=== PATIENT | female | born 1945 | race Caucasian/White ===

== ENCOUNTER 2016-05-02 18:40 | Observation (INO) | payer OTHER, MEDICARE ==
[~2016-05-02] VITALS: Ht 165.1 cm; Wt 54.5 kg
[~2016-05-02 18:40] MED LIST: AMITRIPTYLINE H10 MG PO; ANTIVERT25 MG PO; ASPIR-LOW81 MG PO; ASPIRIN81 M2 PO; ATIVAN0.5 MG PO; Antivert PO; BACTRIM,SEPT1 TABLET PO; BUSPAR5 MG PO; BUSPIRONE HCL5 MG PO; CEFTIN500 MG PO; CIPRO500 MG PO; CLOPIDOGREL75 MG PO; COLACE10 MG/ML PO; COLACE100 MG PO; Cipro PO; DETROL LA4 MG PO; DIAZEPAM2 MG PO; DIFLUCAN100 MG PO; DITROPAN XL5 MG PO; DITROPAN5 MG PO; DOCUSATE SODIU100 MG PO; DOMP10T PO; DULCOLAX10 MG PR; Detrol LA PO; ERY-TAB250 MG PO; ERYTHROMYCIN250 M1 PO; ERYTHROMYCIN250 MG PO; FERROUS SULFAT325 MG PO; FLINTSTONES1 TABLET PO; FLUCONAZOLE100 MG PO; FLUOXETINE HCL10 M1 PO; FLUOXETINE HCL10 MG PO; HYDROCHLOROTH12.5 M3 PO; KEFLEX500 MG PO; LAMICTAL100 MG PO; LAMOTRIGINE100 MG PO; LEVETIRACETAM500 MG PO; LIDODERM 5% P1 PATCH TD; LaMICtal PO; Lovenox SC; MECLIZINE HCL12.5 M1 PO; MECLIZINE HCL25 M3 PO; MECLIZINE HCL25 MG PO; METOCLOPRAMIDE10 MG PO; MILK OF MAGN PO; MIRALAX17 GM PO; MIRTAZAPINE15 MG PO; MIRTAZAPINE30 MG PO; MIRTAZAPINE7.5 MG PO; OMEPRAZOLE20 M2 PO; OMEPRAZOLE40 M1 PO; ONDANSETRON HCL4 MG PO; ONDANSETRON ODT4 MG PO; OXYBUTYNIN CHLOR5 M1 PO; OXYCODONE H5 MG/5 ML PO; PHENADOZ25 MG PR; PHENERGAN25 MG PR; PLAVIX75 MG PO; POLYETHYLENE GL17 GM PO; POTASSIUM CHLO10 ME3 PO; PRAVACHOL20 MG PO; PRAVASTATIN SOD20 MG PO; PRILOSEC40 MG PO; PROMETHAZINE HC25 M1 PO; PROMETHAZINE12.5 M1 PO; PROPRANOLOL HCL60 MG PO; PROTONIX40 MG PO; PROZAC10 MG PO; Phenergan PO; Pravachol PO; REGLAN10 MG PO; SENNA8.6 MG PO; SEROQUEL12.5 MG PO; SINEMET PO; TRANSDERM-SCO1 PATCH TD; TRAZODONE HCL50 MG PO; TYLENOL REGULA325 MG PO; Toprol XL PO; VALIUM2 MG PO; VICODIN,LORT1 TABLET PO; VITAMIN D5000 INTUN PO; Vicodin,Lortab 5/500 PO; Vicodin,Norco 5/325 PO; Vitamin D PO; ZOFRAN ODT4 MG PO; ZOFRAN4 MG PO; ZUPLENZ4 MG PO; [UNRECOGNIZED DRUG - OTHER]; [UNRECOGNIZED DRUG - OTHER] PR
[2016-05-02 19:57] LABS: HEMATOCRIT 43.2 % (36.0-46.0); MCH 28.3 PG (29.0-34.0); MCHC 32.4 G/DL (30.0-36.0); MCV 87.4 FL (83-99); MEAN PLAT.VOLUME 8.9 uM^3 (9.5-12.4); PLATELET COUNT 236 K/uL (156-360); RBC DIS.WIDTH-CV 14.1 % (11.8-14.6); RBC DIS.WIDTH-SD 44.9 % (39-53); RED BLOOD COUNT 4.94 M/uL (3.80-5.20); WHITE BLOOD COUNT 5.4 K/uL (4.1-10.2)
[2016-05-02 20:02] LABS: CHLORIDE 105 mEq/L (99-109); POTASSIUM 4.2 mEq/L (3.7-5.4); SODIUM 139 mEq/L (136-147)
[2016-05-02 20:04] LABS: GLUCOSE 97 mg/dL (70-99)
[2016-05-02 20:05] LABS: ANION GAP 10 MEQ/L (2-14)
[2016-05-02 20:08] LABS: GFR ESTIMATE (CALCULATED) > 59 mL/min/
[2016-05-02 20:09] LABS: UREA NITROGEN (BUN) 14 mg/dL (9-23)
[2016-05-02 21:46] LABS: TROP-I INTERPRETATION NEGATIVE; TROPONIN-I < 0.01 ng/mL (0.0-0.30)
[2016-05-02] MEDS ORDERED: LAMICTAL100 MG PO (21:52)
[2016-05-02] MEDS ORDERED: PRAVACHOL20 MG PO (21:53)
[2016-05-02] MEDS ORDERED: LOW DOSE ASPIRI81 M1 PO (21:53)
[2016-05-02] MEDS ORDERED: TAPAZOLE5 MG PO (21:53)
[2016-05-02] MEDS ORDERED: PROTONIX40 MG PO (21:53)
[2016-05-02 22:22] LABS: Estimated Average Glucose 88 mg/dL (70-123); HEMOGLOBIN A1c (GLYCOHEMOGLOB) 4.7 % HGB (Below 5.7)
[2016-05-02 23:16] VITALS: BP 146/66
[2016-05-03 02:20] LABS: HDL CHOLESTEROL 76 MG/DL (Desirable>=50); LDL CHOLESTEROL 74 mg/dL (Desirable<100); NON-HDL CHOLESTEROL 83 mg/dL (Desirable<160); TOTAL CHOLESTEROL 159 mg/dL (Desirable<200); TRIGLYCERIDES 45 MG/DL (Normal: <150)
[2016-05-03 05:52] VITALS: BP 107/53
[2016-05-03 07:50] VITALS: BP 98/53
[2016-05-03 12:32] VITALS: BP 105/56
[2016-05-03 15:33] VITALS: BP 94/51
[2016-05-03] MEDS ORDERED: LO-DOSE ASPIRIN81 M1 PO (16:47)
== END 2016-05-03 19:40 | disposition home or self-care (01) ==
LOC: EME 18:40 → EDOF 21:32 → 5WEST 22:33
DX: G45.9 Transient cerebral ischemic attack, unspecified (principal); I69.398 Other sequelae of cerebral infarction; R42 Dizziness and giddiness; I10 Essential (primary) hypertension; E03.9 Hypothyroidism, unspecified; G40.909 Epilepsy, unspecified, not intractable, without status epilepticus; Z79.82 Long term (current) use of aspirin; Z82.49 Family history of ischemic heart disease and other diseases of the circulatory system; Z88.5 Allergy status to narcotic agent; Z88.8 Allergy status to other drugs, medicaments and biological substances
CPT/HCPCS: 70450; 70551; 71020; 80048; 80061; 83036; 84484; 85027; 93005; 99281; 99285; G0378; J2060; J2405

== ENCOUNTER 2016-07-28 12:47 | Inpatient (IN) | payer OTHER, MEDICARE ==
[~2016-07-28] VITALS: Ht 162.6 cm; Wt 55.0 kg
[~2016-07-28 12:47] MED LIST changes: +LO-DOSE ASPIRIN81 M1 PO; +LOW DOSE ASPIRI81 M1 PO; +TAPAZOLE5 MG PO
[2016-07-28 13:50] LABS: HEMATOCRIT 40.9 % (36.0-46.0); MCH 23.5 PG (29.0-34.0); MCHC 29.6 G/DL (30.0-36.0); MCV 79.6 FL (83-99); MEAN PLAT.VOLUME 8.7 uM^3 (9.5-12.4); PLATELET COUNT 296 K/uL (156-360); RBC DIS.WIDTH-CV 15.5 % (11.8-14.6); RBC DIS.WIDTH-SD 44.6 % (39-53); RED BLOOD COUNT 5.14 M/uL (3.80-5.20); WHITE BLOOD COUNT 4.9 K/uL (4.1-10.2)
[2016-07-28 13:59] LABS: CHLORIDE 104 mEq/L (99-109); POTASSIUM 3.9 mEq/L (3.7-5.4); SODIUM 140 mEq/L (136-147)
[2016-07-28 14:00] LABS: GLUCOSE 92 mg/dL (70-99)
[2016-07-28 14:02] LABS: ANION GAP 9 MEQ/L (2-14)
[2016-07-28 14:04] LABS: GFR ESTIMATE (CALCULATED) > 59 mL/min/
[2016-07-28 14:05] LABS: UREA NITROGEN (BUN) 10 mg/dL (9-23)
[2016-07-28 14:11] LABS: TROP-I INTERPRETATION NEGATIVE; TROPONIN-I < 0.01 ng/mL (0.0-0.30)
[2016-07-28] MEDS ORDERED: MYRBETRIQ25 MG PO (14:48)
[2016-07-28] MEDS ORDERED: ASPIR-LOW81 MG PO (14:48)
[2016-07-28] MEDS ORDERED: ZOFRAN4 MG PO (14:48)
[2016-07-28] MEDS ORDERED: MECLIZINE HCL12.5 M1 PO (14:48)
[2016-07-28] MEDS ORDERED: ERGOCALCIF50000 UNIT PO (14:49)
[2016-07-28 22:07] LABS: SAMPLE HEMOLYSIS CHECK 0; SAMPLE ICTERIC CHECK 0; SAMPLE LIPEMIA CHECK 0
[2016-07-28 22:12] LABS: HDL CHOLESTEROL 71 MG/DL (Desirable>=50); LDL CHOLESTEROL 84 mg/dL (Desirable<100); NON-HDL CHOLESTEROL 94 mg/dL (Desirable<160); TOTAL CHOLESTEROL 165 mg/dL (Desirable<200); TRIGLYCERIDES 49 MG/DL (Normal: <150)
[2016-07-28 22:19] LABS: Estimated Average Glucose 100 mg/dL (70-123); HEMOGLOBIN A1c (GLYCOHEMOGLOB) 5.1 % HGB (Below 5.7)
[2016-07-28 22:34] VITALS: BP 132/56
[2016-07-29 01:40] LABS: TROP-I INTERPRETATION NEGATIVE; TROPONIN-I < 0.01 ng/mL (0.0-0.30)
[2016-07-29 07:10] LABS: HEMATOCRIT 39.3 % (36.0-46.0); MCH 23.6 PG (29.0-34.0); MCHC 29.5 G/DL (30.0-36.0); MEAN PLAT.VOLUME 8.3 uM^3 (9.5-12.4); PLATELET COUNT 259 K/uL (156-360); RBC DIS.WIDTH-CV 15.5 % (11.8-14.6); RBC DIS.WIDTH-SD 44.7 % (39-53); RED BLOOD COUNT 4.91 M/uL (3.80-5.20)
[2016-07-29 07:11] VITALS: BP 114/54
[2016-07-29 07:47] LABS: TROP-I INTERPRETATION NEGATIVE; TROPONIN-I < 0.01 ng/mL (0.0-0.30)
[2016-07-29 08:45] LABS: D-DIMER ELISA 0.18 mg/L FEU (< 0.57)
[2016-07-29 09:06] LABS: INTER. NORMALIZED RATIO 1.1; PROTHROMBIN TIME 10.9 (9.2-11.2); PTT 29.9 (25-32)
[2016-07-29 12:52] VITALS: BP 98/52
[2016-07-29 17:55] VITALS: BP 89/52
[2016-07-29 20:01] VITALS: BP 108/59
[2016-07-29 23:49] VITALS: BP 131/58
[2016-07-30 04:16] VITALS: BP 93/46
[2016-07-30 08:08] VITALS: BP 113/52
[2016-07-30 12:03] VITALS: BP 95/563
== END 2016-07-30 14:36 | disposition home health service (06) | DRG 149 ==
LOC: EME 12:47 → EDOF 21:27 → 5WEST 21:27
PROVIDERS: Emergency Medicine; Hospitalist
DX: H81.20 Vestibular neuronitis, unspecified ear (principal); E86.0 Dehydration; I10 Essential (primary) hypertension; E78.5 Hyperlipidemia, unspecified; K31.84 Gastroparesis; G40.909 Epilepsy, unspecified, not intractable, without status epilepticus; F32.9 Major depressive disorder, single episode, unspecified; K21.9 Gastro-esophageal reflux disease without esophagitis; Z96.651 Presence of right artificial knee joint; Z86.73 Personal history of transient ischemic attack (TIA), and cerebral infarction without residual deficits; D64.9 Anemia, unspecified; G43.909 Migraine, unspecified, not intractable, without status migrainosus
CPT/HCPCS: 70450; 70551; 71020; 80048; 80061; 81003; 83036; 84484; 85027; 85379; 85610; 85730; 93005; 93880; 99281; 99285; G0378; J1644; J2060; J2405; J7030

== ENCOUNTER 2016-08-25 10:46 | Emergency (ER) | payer OTHER, MEDICARE ==
[~2016-08-25] VITALS: Ht 162.6 cm; Wt 55.4 kg
[~2016-08-25 10:46] MED LIST changes: +ERGOCALCIF50000 UNIT PO; +MYRBETRIQ25 MG PO
[2016-08-25 11:52] LABS: HEMATOCRIT 38.5 % (36.0-46.0); MCH 22.1 PG (29.0-34.0); MCHC 28.8 G/DL (30.0-36.0); MCV 76.7 FL (83-99); MEAN PLAT.VOLUME 8.9 uM^3 (9.5-12.4); PLATELET COUNT 287 K/uL (156-360); RBC DIS.WIDTH-CV 16.6 % (11.8-14.6); RBC DIS.WIDTH-SD 45.9 % (39-53); RED BLOOD COUNT 5.02 M/uL (3.80-5.20); WHITE BLOOD COUNT 4.4 K/uL (4.1-10.2)
[2016-08-25 12:10] LABS: CHLORIDE 107 mEq/L (99-109); POTASSIUM 4.9 mEq/L (3.7-5.4); SODIUM 141 mEq/L (136-147)
[2016-08-25 12:12] LABS: GLUCOSE 94 mg/dL (70-99)
[2016-08-25 12:13] LABS: ANION GAP 7 MEQ/L (2-14)
[2016-08-25 12:16] LABS: GFR ESTIMATE (CALCULATED) > 59 mL/min/; UREA NITROGEN (BUN) 8 mg/dL (9-23)
[2016-08-25 12:43] LABS: ADD MIUA? YES; BILIRUBIN NEGATIVE; BLOOD NEGATIVE; COLOR YELLOW ((YELLOW)); GLUCOSE (STRIP) NEGATIVE; KETONES NEGATIVE; LEUKOCYTES SMALL; NITRITE NEGATIVE; PROTEIN (STRIP) NEGATIVE; SPECIFIC GRAVITY 1.014 (1.000-1.030)
[2016-08-25 12:58] LABS: AMORPHOUS PHOSPHATE CRYSTALS 2+; BACTERIA 1+ /HPF; CASTS NONE SEEN /LPF; CRYSTALS PRESENT; EPITHELIAL CELLS 1+ /HPF; MUCUS NONE SEEN /LPF; RED BLOOD CELLS NONE SEEN /HPF (0-5); UCUL ADDED? NO; WHITE BLOOD CELLS 0-5 /HPF (0-5)
[2016-08-25 15:01] VITALS: BP 107/55
== END 2016-08-25 15:09 | disposition home or self-care (01) ==
LOC: EME 10:46
PROVIDERS: Emergency Medicine
DX: R53.1 Weakness (principal); R42 Dizziness and giddiness; J45.909 Unspecified asthma, uncomplicated; K21.9 Gastro-esophageal reflux disease without esophagitis; R56.9 Unspecified convulsions; I25.10 Atherosclerotic heart disease of native coronary artery without angina pectoris; Z86.73 Personal history of transient ischemic attack (TIA), and cerebral infarction without residual deficits
CPT/HCPCS: 80048; 81003; 85027; 99281; 99285; J7030

== ENCOUNTER 2016-08-29 18:04 | Emergency (ER) | payer OTHER, MEDICARE ==
[~2016-08-29] VITALS: Ht 162.6 cm; Wt 55.5 kg
[2016-08-29 18:51] LABS: HEMATOCRIT 33.3 % (36.0-46.0); MCH 21.9 PG (29.0-34.0); MCHC 28.8 G/DL (30.0-36.0); MEAN PLAT.VOLUME 8.7 uM^3 (9.5-12.4); PLATELET COUNT 272 K/uL (156-360); RBC DIS.WIDTH-CV 16.8 % (11.8-14.6); RBC DIS.WIDTH-SD 46.4 % (39-53); RED BLOOD COUNT 4.38 M/uL (3.80-5.20); WHITE BLOOD COUNT 4.8 K/uL (4.1-10.2)
[2016-08-29 18:59] LABS: CHLORIDE 107 mEq/L (99-109); POTASSIUM 4.3 mEq/L (3.7-5.4); SODIUM 138 mEq/L (136-147)
[2016-08-29 19:01] LABS: GLUCOSE 94 mg/dL (70-99)
[2016-08-29 19:02] LABS: ANION GAP 6 MEQ/L (2-14)
[2016-08-29 19:05] LABS: GFR ESTIMATE (CALCULATED) > 59 mL/min/
[2016-08-29 19:06] LABS: UREA NITROGEN (BUN) 12 mg/dL (9-23)
[2016-08-29 19:11] LABS: TROP-I INTERPRETATION NEGATIVE; TROPONIN-I < 0.01 ng/mL (0.0-0.30)
[2016-08-29] MEDS ORDERED: MAALOX MAXIMUM355 ML PO (21:32)
[2016-08-29 21:38] LABS: TROP-I INTERPRETATION NEGATIVE; TROPONIN-I < 0.01 ng/mL (0.0-0.30)
[2016-08-29 23:10] VITALS: BP 108/56
== END 2016-08-29 23:19 | disposition home or self-care (01) ==
LOC: EME 18:04
PROVIDERS: Emergency Medicine
DX: R07.9 Chest pain, unspecified (principal); M54.2 Cervicalgia; R09.89 Other specified symptoms and signs involving the circulatory and respiratory systems; Z79.82 Long term (current) use of aspirin
CPT/HCPCS: 71020; 80048; 84484; 85027; 93005; 99281; 99285

== ENCOUNTER 2016-11-11 17:29 | Emergency (ER) | payer OTHER, MEDICARE ==
[~2016-11-11] VITALS: Ht 162.6 cm; Wt 56.8 kg
[~2016-11-11 17:29] MED LIST changes: +MAALOX MAXIMUM355 ML PO
[2016-11-11 19:04] LABS: EOSINOPHIL COUNT 0.1 K/uL (0-0.3); HEMATOCRIT 31.9 % (36.0-46.0); IMMATURE GRANULOCYTE (%) 0.2 % (0.0-0.7); INSTRUMENT ABS NEUTROPHIL CT 3.8 K/uL; LYMPHOCYTE COUNT 0.9 K/uL (1.0-2.8); MCH 18.2 PG (29.0-34.0); MCHC 27.3 G/DL (30.0-36.0); MCV 66.6 FL (83-99); MEAN PLAT.VOLUME 9.2 uM^3 (9.5-12.4); MONOCYTE (%) 9.4 % (3-12); MONOCYTE COUNT 0.5 K/uL (0-0.8); NEUTROPHIL (%) 72.4 % (45-76); NEUTROPHIL COUNT 3.8 K/uL (1.8-6.4); PLATELET COUNT 312 K/uL (156-360); RBC DIS.WIDTH-CV 19.2 % (11.8-14.6); RBC DIS.WIDTH-SD 44.8 % (39-53); RED BLOOD COUNT 4.79 M/uL (3.80-5.20); WHITE BLOOD COUNT 5.2 K/uL (4.1-10.2)
[2016-11-11 19:10] LABS: ADD MIUA? YES; BILIRUBIN NEGATIVE; BLOOD NEGATIVE; COLOR YELLOW ((YELLOW)); GLUCOSE (STRIP) NEGATIVE; KETONES NEGATIVE; LEUKOCYTES TRACE; NITRITE NEGATIVE; PROTEIN (STRIP) 30; SPECIFIC GRAVITY 1.028 (1.000-1.030)
[2016-11-11 19:11] LABS: CHLORIDE 106 mEq/L (99-109); POTASSIUM 4.1 mEq/L (3.7-5.4); SODIUM 141 mEq/L (136-147)
[2016-11-11 19:13] LABS: GLUCOSE 97 mg/dL (70-99)
[2016-11-11 19:15] LABS: ANION GAP 12 MEQ/L (2-14)
[2016-11-11 19:17] LABS: GFR ESTIMATE (CALCULATED) > 59 mL/min/
[2016-11-11 19:18] LABS: UREA NITROGEN (BUN) 13 mg/dL (9-23)
[2016-11-11 19:47] LABS: EPITHELIAL CELLS 1+ /HPF; RED BLOOD CELLS 0-5 /HPF (0-5); WHITE BLOOD CELLS 0-5 /HPF (0-5)
[2016-11-11 19:48] LABS: AMORPHOUS URATES CRYSTALS 1+; BACTERIA 1+ /HPF; CASTS NONE SEEN /LPF; CRYSTALS PRESENT; MUCUS 2+ /LPF; UCUL ADDED? NO
[2016-11-11 20:53] VITALS: BP 106/59
== END 2016-11-11 20:54 | disposition home or self-care (01) ==
LOC: EME 17:29
PROVIDERS: Emergency Medicine
DX: D50.9 Iron deficiency anemia, unspecified (principal); R53.1 Weakness; G40.909 Epilepsy, unspecified, not intractable, without status epilepticus; K21.9 Gastro-esophageal reflux disease without esophagitis; Z86.73 Personal history of transient ischemic attack (TIA), and cerebral infarction without residual deficits; F32.9 Major depressive disorder, single episode, unspecified; J45.909 Unspecified asthma, uncomplicated; Z88.6 Allergy status to analgesic agent; Z90.49 Acquired absence of other specified parts of digestive tract
CPT/HCPCS: 80048; 81003; 85025; 93005; 99281; 99284

== ENCOUNTER 2016-12-05 00:03 | Emergency (ER) | payer OTHER, MEDICARE ==
[~2016-12-05] VITALS: Ht 162.6 cm; Wt 54.5 kg
[2016-12-05 01:25] LABS: CHLORIDE 104 mEq/L (99-109); POTASSIUM 4.1 mEq/L (3.7-5.4); SODIUM 140 mEq/L (136-147)
[2016-12-05 01:27] LABS: GLUCOSE 108 mg/dL (70-99); TROP-I INTERPRETATION NEGATIVE; TROPONIN-I < 0.01 ng/mL (0.0-0.30)
[2016-12-05 01:28] LABS: ANION GAP 11 MEQ/L (2-14)
[2016-12-05 01:29] LABS: TOTAL BILIRUBIN 0.5 mg/dL (0.0-1.0)
[2016-12-05 01:31] LABS: ALKALINE PHOSPHATASE 68 IU/L (3-129); GFR ESTIMATE (CALCULATED) > 59 mL/min/
[2016-12-05 01:32] LABS: UREA NITROGEN (BUN) 12 mg/dL (9-23)
[2016-12-05 01:34] LABS: LIPASE 6 U/L (1.0-51.0)
[2016-12-05 01:36] LABS: HEMATOCRIT 32.2 % (36.0-46.0); MCH 17.2 PG (29.0-34.0); MCHC 26.4 G/DL (30.0-36.0); MCV 65.2 FL (83-99); MEAN PLAT.VOLUME 9.4 uM^3 (9.5-12.4); PLATELET COUNT 325 K/uL (156-360); RBC DIS.WIDTH-CV 20.8 % (11.8-14.6); RBC DIS.WIDTH-SD 45.7 % (39-53); RED BLOOD COUNT 4.94 M/uL (3.80-5.20); WHITE BLOOD COUNT 5.5 K/uL (4.1-10.2)
[2016-12-05 03:37] LABS: ADD MIUA? YES; BILIRUBIN NEGATIVE; BLOOD NEGATIVE; COLOR YELLOW ((YELLOW)); GLUCOSE (STRIP) NEGATIVE; KETONES 5; LEUKOCYTES TRACE; NITRITE NEGATIVE; PROTEIN (STRIP) NEGATIVE; SPECIFIC GRAVITY 1.024 (1.000-1.030)
[2016-12-05 04:05] LABS: BACTERIA RARE /HPF; EPITHELIAL CELLS 1+ /HPF; MUCUS 2+ /LPF; RED BLOOD CELLS 0-5 /HPF (0-5); UCUL ADDED? NO; WHITE BLOOD CELLS 0-5 /HPF (0-5)
[2016-12-05 04:39] VITALS: BP 117/74
== END 2016-12-05 04:40 | disposition home or self-care (01) ==
LOC: EME 00:03
PROVIDERS: Emergency Medicine
DX: R42 Dizziness and giddiness (principal); D64.9 Anemia, unspecified; R26.2 Difficulty in walking, not elsewhere classified; Z79.82 Long term (current) use of aspirin
CPT/HCPCS: 71010; 80053; 81003; 83690; 84484; 85027; 93005; 99281; 99285; J7030

== ENCOUNTER 2017-01-02 14:34 | Emergency (ER) | payer OTHER, MEDICARE ==
[~2017-01-02] VITALS: Ht 162.6 cm; Wt 55.0 kg
[2017-01-02 15:48] LABS: EOSINOPHIL (%) 2.4 % (0-5); EOSINOPHIL COUNT 0.1 K/uL (0-0.3); HEMATOCRIT 30.7 % (36.0-46.0); IMMATURE GRANULOCYTE (%) 0.2 % (0.0-0.7); INSTRUMENT ABS NEUTROPHIL CT 2.3 K/uL; LYMPHOCYTE COUNT 1.2 K/uL (1.0-2.8); MCH 16.6 PG (29.0-34.0); MCHC 26.1 G/DL (30.0-36.0); MCV 63.8 FL (83-99); MEAN PLAT.VOLUME 9.1 uM^3 (9.5-12.4); MONOCYTE (%) 12.1 % (3-12); MONOCYTE COUNT 0.5 K/uL (0-0.8); NEUTROPHIL COUNT 2.3 K/uL (1.8-6.4); PLATELET COUNT 312 K/uL (156-360); PROTHROMBIN TIME 11.4 SEC (10.2-12.9); RBC DIS.WIDTH-CV 20.5 % (11.8-14.6); RBC DIS.WIDTH-SD 45.4 % (39-53); RED BLOOD COUNT 4.81 M/uL (3.80-5.20); WHITE BLOOD COUNT 4.1 K/uL (4.1-10.2)
[2017-01-02 15:51] LABS: PTT 31.1 SEC (25-37)
[2017-01-02 15:55] LABS: CHLORIDE 105 mEq/L (99-109); MAGNESIUM 2.1 mg/dL (1.3-2.7); POTASSIUM 4.2 mEq/L (3.7-5.4); SODIUM 139 mEq/L (136-147)
[2017-01-02 15:56] LABS: GLUCOSE 104 mg/dL (70-99)
[2017-01-02 15:58] LABS: ANION GAP 10 MEQ/L (2-14)
[2017-01-02 16:00] LABS: GFR ESTIMATE (CALCULATED) > 59 mL/min/
[2017-01-02 16:01] LABS: TROP-I INTERPRETATION NEGATIVE; TROPONIN-I < 0.01 ng/mL (0.0-0.30); UREA NITROGEN (BUN) 9 mg/dL (9-23)
[2017-01-02 17:16] LABS: ADD MIUA? YES; BILIRUBIN NEGATIVE; BLOOD SMALL; COLOR STRAW ((YELLOW)); GLUCOSE (STRIP) NEGATIVE; KETONES NEGATIVE; LEUKOCYTES NEGATIVE; NITRITE NEGATIVE; PROTEIN (STRIP) NEGATIVE; SPECIFIC GRAVITY 1.004 (1.000-1.030); UROBILINOGEN 0.2 MG/DL (0.2-1.0)
[2017-01-02 17:19] LABS: BACTERIA RARE /HPF; EPITHELIAL CELLS RARE /HPF; HYALINE CASTS 0-5 /LPF; MUCUS NONE SEEN /LPF; RED BLOOD CELLS 0-5 /HPF (0-5); UCUL ADDED? NO; WHITE BLOOD CELLS 0-5 /HPF (0-5)
[2017-01-02 17:54] VITALS: BP 100/60
== END 2017-01-02 17:55 | disposition home or self-care (01) ==
LOC: EME 14:34
PROVIDERS: Emergency Medicine
DX: R42 Dizziness and giddiness (principal); D64.9 Anemia, unspecified; K21.9 Gastro-esophageal reflux disease without esophagitis; R56.9 Unspecified convulsions; I25.10 Atherosclerotic heart disease of native coronary artery without angina pectoris; Z86.73 Personal history of transient ischemic attack (TIA), and cerebral infarction without residual deficits; Z88.5 Allergy status to narcotic agent
CPT/HCPCS: 70450; 71010; 80048; 81003; 83735; 84484; 85025; 85610; 85730; 87040; 93005; 99281; 99285

== ENCOUNTER 2017-05-22 17:15 | Inpatient (IN) | payer OTHER, MEDICARE ==
[~2017-05-22] VITALS: Ht 157.5 cm; Wt 51.8 kg
[2017-05-22 18:53] LABS: ALBUMIN 3.3 g/dL (3.2-4.8); CHLORIDE 105 mEq/L (99-109)
[2017-05-22 18:54] LABS: SODIUM 139 mEq/L (136-147)
[2017-05-22 18:56] LABS: GLUCOSE 94 mg/dL (70-99); TOTAL PROTEIN 5.3 g/dL (6.4-8.3)
[2017-05-22 18:58] LABS: TOTAL BILIRUBIN 0.4 mg/dL (0.0-1.0)
[2017-05-22 18:59] LABS: ALKALINE PHOSPHATASE 44 IU/L (3-129); CREATININE 0.5 mg/dL (0.6-1.3); GFR ESTIMATE (CALCULATED) > 59 mL/min/
[2017-05-22 19:01] LABS: AST (GOT) 9 IU/L (2-34); UREA NITROGEN (BUN) 10 mg/dL (9-23)
[2017-05-22 19:02] LABS: ALT (GPT) 7 IU/L (3-49)
[2017-05-22 19:06] LABS: HEMATOCRIT 26.3 % (36.0-46.0); MCH 15.2 PG (29.0-34.0); MCHC 25.1 G/DL (30.0-36.0); MCV 60.6 FL (83-99); PLATELET COUNT 311 K/uL (156-360); RBC DIS.WIDTH-CV 22.1 % (11.8-14.6); RBC DIS.WIDTH-SD 45.7 % (39-53); RED BLOOD COUNT 4.34 M/uL (3.80-5.20); WHITE BLOOD COUNT 4.1 K/uL (4.1-10.2)
[2017-05-22 19:13] LABS: HEMOGLOBIN 6.6 G/DL (11.9-15.5)
[2017-05-22 19:18] LABS: TROP-I INTERPRETATION NEGATIVE; TROPONIN-I 0.02 ng/mL (0.0-0.30)
[2017-05-22 19:46] LABS: APPEARANCE CLOUDY ((CLEAR)); BILIRUBIN NEGATIVE; BLOOD SMALL; COLOR YELLOW ((YELLOW)); GLUCOSE (STRIP) NEGATIVE; KETONES 20; LEUKOCYTES LARGE; NITRITE NEGATIVE; PROTEIN (STRIP) NEGATIVE; SPECIFIC GRAVITY 1.016 (1.000-1.030)
[2017-05-22 20:08] LABS: BACTERIA NONE SEEN /HPF; EPITHELIAL CELLS 1+ /HPF; MUCUS NONE SEEN /LPF; RED BLOOD CELLS 0-5 /HPF (0-5); UCUL ADDED? NO; WHITE BLOOD CELLS 0-5 /HPF (0-5)
[2017-05-22] MEDS ORDERED: DITROPAN XL5 MG PO (20:10)
[2017-05-22] MEDS ORDERED: THYROID MED PO (20:10)
[2017-05-22] MEDS ORDERED: ZOFRAN4 MG PO (20:11)
[2017-05-22 23:33] VITALS: BP 130/64
[2017-05-23] VITALS (10 sets, daily range): BP systolic 113–142; BP diastolic 58–68
[2017-05-23 09:57] LABS: HEMATOCRIT 32.3 % (36.0-46.0); HEMOGLOBIN 8.8 G/DL (11.9-15.5); MCH 17.7 PG (29.0-34.0); MCHC 27.2 G/DL (30.0-36.0); MCV 65.1 FL (83-99); NRBC (%) 0.5 /100 WBC (0-0); PLATELET COUNT 279 K/uL (156-360); RBC DIS.WIDTH-CV 26.3 % (11.8-14.6); RBC DIS.WIDTH-SD 58.4 % (39-53); RED BLOOD COUNT 4.96 M/uL (3.80-5.20); WHITE BLOOD COUNT 5.8 K/uL (4.1-10.2)
[2017-05-23 10:25] LABS: CHLORIDE 104 MEQ/L (99-109); CREATININE 0.4 MG/DL (0.6-1.3); GFR ESTIMATE (CALCULATED) > 59 mL/min/; GLUCOSE 77 mg/dL (70-99); POTASSIUM 3.7 MEQ/L (3.7-5.4); SODIUM 136 MEQ/L (136-147); UREA NITROGEN (BUN) 5 mg/dL (9-23)
[2017-05-23 12:45] LABS: THYROTROPIN (TSH) 3.5 MIU/L (0.4-5.5)
[2017-05-24 06:56] LABS: BASOPHIL (%) 0.8 % (0-1); EOSINOPHIL (%) 0 % (0-5); HEMOGLOBIN 8.9 G/DL (11.9-15.5); IMMATURE GRANULOCYTE (%) 0.5 % (0.0-0.7); LYMPHOCYTE COUNT 0.8 K/uL (1.0-2.8); MCH 17.7 PG (29.0-34.0); MCV 65.5 FL (83-99); MONOCYTE (%) 9.5 % (3-12); MONOCYTE COUNT 0.4 K/uL (0-0.8); NEUTROPHIL (%) 69.2 % (45-76); NEUTROPHIL COUNT 2.7 K/uL (1.8-6.4); PLATELET COUNT 274 K/uL (156-360); RBC DIS.WIDTH-CV 26.6 % (11.8-14.6); RBC DIS.WIDTH-SD 59.7 % (39-53); RED BLOOD COUNT 5.04 M/uL (3.80-5.20); WHITE BLOOD COUNT 3.9 K/uL (4.1-10.2)
[2017-05-24 07:15] VITALS: BP 134/62
[2017-05-24 07:17] LABS: ALBUMIN 3.3 G/DL (3.2-4.8); CHLORIDE 105 MEQ/L (99-109); CREATININE 0.4 MG/DL (0.6-1.3); GFR ESTIMATE (CALCULATED) > 59 mL/min/; GLUCOSE 69 mg/dL (70-99); PHOSPHORUS 3.1 mg/dL (2.5-4.9); POTASSIUM 3.5 MEQ/L (3.7-5.4); SODIUM 141 MEQ/L (136-147); UREA NITROGEN (BUN) 4 mg/dL (9-23)
[2017-05-24 15:40] VITALS: BP 119/59
[2017-05-25 01:49] VITALS: BP 105/54
[2017-05-25 07:12] LABS: HEMATOCRIT 32.3 % (36.0-46.0); HEMOGLOBIN 8.9 G/DL (11.9-15.5); MCH 18.2 PG (29.0-34.0); MCHC 27.6 G/DL (30.0-36.0); MCV 65.9 FL (83-99); PLATELET COUNT 278 K/uL (156-360); RBC DIS.WIDTH-CV 27.4 % (11.8-14.6); RBC DIS.WIDTH-SD 61.5 % (39-53); WHITE BLOOD COUNT 4.2 K/uL (4.1-10.2)
[2017-05-25 08:02] VITALS: BP 115/56
[2017-05-25 11:10] VITALS: BP 109/58
[2017-05-25] MEDS ORDERED: ERYTHROMYCIN250 M1 PO (12:02)
[2017-05-25] MEDS ORDERED: PROTONIX40 MG PO (12:02)
[2017-05-25 12:24] LABS: STOOL OCCULT BLD 1ST SPECIMEN POSITIVE
[2017-05-26] MEDS ORDERED: PROTONIX40 MG PO (23:16)
[2017-05-26] MEDS ORDERED: TAPAZOLE5 MG PO (23:16)
== END 2017-05-25 14:59 | disposition home health service (06) | DRG 378 ==
LOC: EME 17:15 → EDOF 21:01 → ENRESERV 21:06 → 5EAST 23:14 → ENPENDDIS 05-25 → 5EAST 05-25 14:59
PROVIDERS: Hospitalist; Internal Medicine Gastroenterology
PROC: 30233N1 Transfusion of Nonautologous Red Blood Cells into Peripheral Vein, Percutaneous Approach (ICD-10-PCS; principal; 2017-05-22)
DX: K92.2 Gastrointestinal hemorrhage, unspecified (principal); D62 Acute posthemorrhagic anemia; N39.0 Urinary tract infection, site not specified; K31.84 Gastroparesis; E78.5 Hyperlipidemia, unspecified; F32.9 Major depressive disorder, single episode, unspecified; F60.0 Paranoid personality disorder; G40.909 Epilepsy, unspecified, not intractable, without status epilepticus; I10 Essential (primary) hypertension; I25.10 Atherosclerotic heart disease of native coronary artery without angina pectoris; K21.0 Gastro-esophageal reflux disease with esophagitis; F41.9 Anxiety disorder, unspecified; G43.909 Migraine, unspecified, not intractable, without status migrainosus; R00.0 Tachycardia, unspecified; G31.84 Mild cognitive impairment of uncertain or unknown etiology; Z96.651 Presence of right artificial knee joint; Z79.82 Long term (current) use of aspirin; Z86.010 Personal history of colon polyps; Z86.73 Personal history of transient ischemic attack (TIA), and cerebral infarction without residual deficits
CPT/HCPCS: 80048; 80053; 80069; 81003; 82272; 84443; 84484; 85025; 85027; 86850; 86900; 86901; 86920; 93005; 99281; 99285; C9113; J0696; J2405; J7030; J7040; P9016; S0028

== ENCOUNTER 2017-05-26 18:05 | Observation (INO) | payer OTHER, MEDICARE ==
[~2017-05-26] VITALS: Ht 160 cm; Wt 50.7 kg
[~2017-05-26 18:05] MED LIST changes: +THYROID MED PO
[2017-05-26 18:55] LABS: HEMATOCRIT 40.8 % (36.0-46.0); MCH 18.1 PG (29.0-34.0); MCV 67.1 FL (83-99); PLATELET COUNT 291 K/uL (156-360); RBC DIS.WIDTH-CV 29.4 % (11.8-14.6); RBC DIS.WIDTH-SD 67.7 % (39-53); WHITE BLOOD COUNT 5.3 K/uL (4.1-10.2)
[2017-05-26 18:56] LABS: RED BLOOD COUNT 6.08 M/uL (3.80-5.20)
[2017-05-26 19:09] LABS: ALBUMIN 3.9 g/dL (3.2-4.8); CHLORIDE 102 mEq/L (99-109); POTASSIUM 3.6 mEq/L (3.7-5.4); SODIUM 142 mEq/L (136-147)
[2017-05-26 19:13] LABS: GLUCOSE 93 mg/dL (70-99); TOTAL PROTEIN 6.6 g/dL (6.4-8.3)
[2017-05-26 19:15] LABS: ALKALINE PHOSPHATASE 50 IU/L (3-129); CREATININE 0.6 mg/dL (0.6-1.3); GFR ESTIMATE (CALCULATED) > 59 mL/min/; TOTAL BILIRUBIN 0.6 mg/dL (0.0-1.0)
[2017-05-26 19:16] LABS: UREA NITROGEN (BUN) 11 mg/dL (9-23)
[2017-05-26 19:17] LABS: AST (GOT) 9 IU/L (2-34)
[2017-05-26 19:18] LABS: ALT (GPT) 7 IU/L (3-49)
[2017-05-26 20:15] LABS: MAGNESIUM 1.8 mg/dL (1.3-2.7)
[2017-05-26 20:22] LABS: LIPASE 10 U/L (1.0-51.0); TROP-I INTERPRETATION NEGATIVE; TROPONIN-I < 0.01 ng/mL (0.0-0.30)
[2017-05-26 22:12] LABS: APPEARANCE SL.HAZY ((CLEAR)); BILIRUBIN NEGATIVE; BLOOD SMALL; COLOR YELLOW ((YELLOW)); GLUCOSE (STRIP) NEGATIVE; KETONES 80; LEUKOCYTES NEGATIVE; NITRITE NEGATIVE; PROTEIN (STRIP) 100; SPECIFIC GRAVITY 1.024 (1.000-1.030); UROBILINOGEN 0.2 MG/DL (0.2-1.0)
[2017-05-26 22:18] LABS: BACTERIA 1+ /HPF; EPITHELIAL CELLS 4+ /HPF; MUCUS TRACE /LPF; UCUL ADDED? NO; WHITE BLOOD CELLS 0-5 /HPF (0-5)
[2017-05-26] MEDS ORDERED: PROTONIX40 MG PO (23:16)
[2017-05-26] MEDS ORDERED: TAPAZOLE5 MG PO (23:16)
[2017-05-27 00:55] VITALS: BP 134/60
[2017-05-27 05:35] LABS: TROP-I INTERPRETATION NEGATIVE; TROPONIN-I < 0.01 ng/mL (0.0-0.30)
[2017-05-27 08:25] VITALS: BP 135/6
[2017-05-27 11:14] VITALS: BP 127/60
[2017-05-27 15:57] VITALS: BP 112/57
[2017-05-27 19:45] VITALS: BP 139/65
[2017-05-28 00:12] VITALS: BP 122/57
[2017-05-28 06:02] LABS: HEMATOCRIT 31.9 % (36.0-46.0); MCH 18.3 PG (29.0-34.0); MCHC 27.3 G/DL (30.0-36.0); PLATELET COUNT 226 K/uL (156-360); RBC DIS.WIDTH-CV 28.9 % (11.8-14.6); RBC DIS.WIDTH-SD 67.7 % (39-53); WHITE BLOOD COUNT 3.1 K/uL (4.1-10.2)
[2017-05-28 06:03] LABS: HEMOGLOBIN 8.7 G/DL (11.9-15.5); RED BLOOD COUNT 4.76 M/uL (3.80-5.20)
[2017-05-28 06:22] LABS: CHLORIDE 104 MEQ/L (99-109); CREATININE 0.3 MG/DL (0.6-1.3); GFR ESTIMATE (CALCULATED) > 59 mL/min/; GLUCOSE 75 mg/dL (70-99); POTASSIUM 3.2 MEQ/L (3.7-5.4); SODIUM 141 MEQ/L (136-147); UREA NITROGEN (BUN) 2 mg/dL (9-23)
[2017-05-28 08:21] VITALS: BP 113/75
[2017-05-28] MEDS ORDERED: ERYTHROMYCIN250 M1 PO (12:00)
[2017-05-28] MEDS ORDERED: PRAVASTATIN SOD40 MG PO (12:00)
[2017-05-28] MEDS ORDERED: ANTIVERT25 MG PO (12:00)
[2017-05-28 12:41] VITALS: BP 115/68
[2017-05-28 15:14] VITALS: BP 116/68
== END 2017-05-28 17:19 ==
LOC: EME 18:05 → 5WEST 23:52 → EDOF 23:52 → ENRESERV 23:53 → 5WEST 05-27 00:43 → ENPENDDIS 05-28 → 5WEST 05-28 17:19
PROVIDERS: Hospitalist
DX: R42 Dizziness and giddiness (principal); E86.0 Dehydration; R11.2 Nausea with vomiting, unspecified; E05.90 Thyrotoxicosis, unspecified without thyrotoxic crisis or storm; D62 Acute posthemorrhagic anemia; F60.0 Paranoid personality disorder; G31.84 Mild cognitive impairment of uncertain or unknown etiology; F43.22 Adjustment disorder with anxiety; K21.9 Gastro-esophageal reflux disease without esophagitis; K22.70 Barrett's esophagus without dysplasia; Z85.038 Personal history of other malignant neoplasm of large intestine; R53.1 Weakness; G40.909 Epilepsy, unspecified, not intractable, without status epilepticus; Z86.73 Personal history of transient ischemic attack (TIA), and cerebral infarction without residual deficits; Z90.49 Acquired absence of other specified parts of digestive tract; Z88.5 Allergy status to narcotic agent; Z79.82 Long term (current) use of aspirin; Z82.49 Family history of ischemic heart disease and other diseases of the circulatory system
CPT/HCPCS: 71046; 80048; 80053; 81003; 83690; 83735; 84484; 85027; 93005; 99281; 99285; G0378; G8978 GP CM; G8979 GP CK; G8980 GP CK; G8980 GP CM; J1644; J2060; J2405; J7030; J7042

== ENCOUNTER 2017-06-10 12:48 | Emergency (ER) | payer OTHER, MEDICARE ==
[~2017-06-10] VITALS: Ht 160 cm; Wt 47.8 kg
[~2017-06-10 12:48] MED LIST changes: +PRAVASTATIN SOD40 MG PO
[2017-06-10 14:43] LABS: HEMOGLOBIN 9.8 G/DL (11.9-15.5); MCH 19.6 PG (29.0-34.0); MCV 69.9 FL (83-99); PLATELET COUNT 390 K/uL (156-360); RBC DIS.WIDTH-CV 31.1 % (11.8-14.6); RBC DIS.WIDTH-SD 73.8 % (39-53); RED BLOOD COUNT 5.01 M/uL (3.80-5.20); WHITE BLOOD COUNT 10.8 K/uL (4.1-10.2)
[2017-06-10 14:48] LABS: CHLORIDE 105 mEq/L (99-109); POTASSIUM 4.3 mEq/L (3.7-5.4); SODIUM 139 mEq/L (136-147)
[2017-06-10 14:50] LABS: GLUCOSE 71 mg/dL (70-99)
[2017-06-10 14:54] LABS: CREATININE 0.5 mg/dL (0.6-1.3); GFR ESTIMATE (CALCULATED) > 59 mL/min/
[2017-06-10 14:55] LABS: UREA NITROGEN (BUN) 11 mg/dL (9-23)
[2017-06-10 18:52] VITALS: BP 122/65
== END 2017-06-10 18:55 ==
LOC: EME 12:48
PROVIDERS: Emergency Medicine
DX: M25.512 Pain in left shoulder (principal); M79.602 Pain in left arm; W19.XXXA Unspecified fall, initial encounter; I25.10 Atherosclerotic heart disease of native coronary artery without angina pectoris; Z86.73 Personal history of transient ischemic attack (TIA), and cerebral infarction without residual deficits; R56.9 Unspecified convulsions; K21.9 Gastro-esophageal reflux disease without esophagitis; F41.9 Anxiety disorder, unspecified; F32.9 Major depressive disorder, single episode, unspecified; Z79.82 Long term (current) use of aspirin; Z88.5 Allergy status to narcotic agent
CPT/HCPCS: 71045; 73030; 73060; 80048; 85027; 99281; 99284

== ENCOUNTER 2017-08-05 14:30 | Emergency (ER) | payer OTHER, MEDICARE ==
[~2017-08-05] VITALS: Ht 157.5 cm; Wt 59.0 kg
[2017-08-05 15:06] LABS: MCHC 31.3 G/DL (30.0-36.0); PLATELET COUNT 263 K/uL (156-360); RBC DIS.WIDTH-CV 22.3 % (11.8-14.6); RBC DIS.WIDTH-SD 73.1 % (39-53); RED BLOOD COUNT 4.47 M/uL (3.80-5.20); WHITE BLOOD COUNT 6.5 K/uL (4.1-10.2)
[2017-08-05 15:09] LABS: HEMOGLOBIN 12.5 G/DL (11.9-15.5); MCV 89.5 FL (83-99)
[2017-08-05 15:14] LABS: CHLORIDE 106 mEq/L (99-109); POTASSIUM 4.1 mEq/L (3.7-5.4); SODIUM 142 mEq/L (136-147)
[2017-08-05 15:16] LABS: GLUCOSE 79 mg/dL (70-99)
[2017-08-05 15:20] LABS: CREATININE 0.6 mg/dL (0.6-1.3); GFR ESTIMATE (CALCULATED) > 59 mL/min/
[2017-08-05 15:21] LABS: UREA NITROGEN (BUN) 13 mg/dL (9-23)
[2017-08-05 18:18] LABS: APPEARANCE SL.HAZY ((CLEAR)); BILIRUBIN NEGATIVE; BLOOD NEGATIVE; COLOR YELLOW ((YELLOW)); GLUCOSE (STRIP) NEGATIVE; KETONES NEGATIVE; LEUKOCYTES TRACE; NITRITE NEGATIVE; PROTEIN (STRIP) NEGATIVE; SPECIFIC GRAVITY 1.023 (1.000-1.030); UROBILINOGEN 0.2 MG/DL (0.2-1.0)
[2017-08-05 18:26] LABS: BACTERIA NONE SEEN /HPF; EPITHELIAL CELLS RARE /HPF; HYALINE CASTS 0-5 /LPF; MUCUS 2+ /LPF; RED BLOOD CELLS 0-5 /HPF (0-5); WHITE BLOOD CELLS 0-5 /HPF (0-5)
[2017-08-05 21:00] VITALS: BP 144/79
== END 2017-08-05 21:01 | disposition home or self-care (01) ==
LOC: EME 14:30 → RME 14:30
PROVIDERS: Nurse Practitioner Family
DX: R53.1 Weakness (principal); R29.6 Repeated falls; Z91.81 History of falling; F41.9 Anxiety disorder, unspecified; Z86.73 Personal history of transient ischemic attack (TIA), and cerebral infarction without residual deficits; Z90.49 Acquired absence of other specified parts of digestive tract; Z79.82 Long term (current) use of aspirin
CPT/HCPCS: 71046; 80048; 81003; 85027; 93005; 99281; 99284

== ENCOUNTER 2017-09-03 14:43 | Emergency (ER) | payer OTHER, MEDICARE ==
[~2017-09-03] VITALS: Ht 162.6 cm; Wt 62.5 kg
[2017-09-03 15:15] LABS: HEMATOCRIT 41.1 % (36.0-46.0); HEMOGLOBIN 12.9 G/DL (11.9-15.5); MCH 28.1 PG (29.0-34.0); MCHC 31.4 G/DL (30.0-36.0); MCV 89.5 FL (83-99); PLATELET COUNT 233 K/uL (156-360); RBC DIS.WIDTH-CV 16.2 % (11.8-14.6); RBC DIS.WIDTH-SD 52.3 % (39-53); RED BLOOD COUNT 4.59 M/uL (3.80-5.20); WHITE BLOOD COUNT 6.7 K/uL (4.1-10.2)
[2017-09-03 15:19] LABS: ALBUMIN 3.7 g/dL (3.2-4.8); CHLORIDE 107 mEq/L (99-109); POTASSIUM 3.8 mEq/L (3.7-5.4)
[2017-09-03 15:20] LABS: SODIUM 142 mEq/L (136-147)
[2017-09-03 15:22] LABS: GLUCOSE 108 mg/dL (70-99); TOTAL PROTEIN 6.4 g/dL (6.4-8.3)
[2017-09-03 15:24] LABS: TOTAL BILIRUBIN 0.5 mg/dL (0.0-1.0)
[2017-09-03 15:25] LABS: ALKALINE PHOSPHATASE 64 IU/L (3-129); CREATININE 0.6 mg/dL (0.6-1.3); GFR ESTIMATE (CALCULATED) > 59 mL/min/
[2017-09-03 15:27] LABS: AST (GOT) 11 IU/L (2-34); UREA NITROGEN (BUN) 10 mg/dL (9-23)
[2017-09-03 15:28] LABS: ALT (GPT) 11 IU/L (3-49)
[2017-09-03 15:29] LABS: LIPASE 4 U/L (1.0-51.0)
[2017-09-03 15:37] LABS: TROP-I INTERPRETATION NEGATIVE; TROPONIN-I < 0.01 ng/mL (0.0-0.30)
[2017-09-03] MEDS ORDERED: ZOFRAN4 MG PO (16:33)
[2017-09-03] MEDS ORDERED: ZOFRAN ODT4 MG PO (16:41)
[2017-09-03 18:21] VITALS: BP 131/74
== END 2017-09-03 18:22 | disposition home or self-care (01) ==
LOC: EME 14:43
PROVIDERS: Emergency Medicine
DX: R11.2 Nausea with vomiting, unspecified (principal); R42 Dizziness and giddiness; F32.9 Major depressive disorder, single episode, unspecified; F41.9 Anxiety disorder, unspecified; K21.9 Gastro-esophageal reflux disease without esophagitis; Z86.73 Personal history of transient ischemic attack (TIA), and cerebral infarction without residual deficits; I25.10 Atherosclerotic heart disease of native coronary artery without angina pectoris; Z88.5 Allergy status to narcotic agent; Z79.82 Long term (current) use of aspirin
CPT/HCPCS: 70450; 80048; 80053; 83690; 84484; 85027; 93005; 99281; 99285; J2405; J7030

== ENCOUNTER 2017-09-06 11:58 | Inpatient (IN) | payer OTHER, MEDICARE ==
[~2017-09-06] VITALS: Ht 162.6 cm; Wt 59.0 kg
[2017-09-06 12:51] LABS: HEMATOCRIT 44.8 % (36.0-46.0); HEMOGLOBIN 14.2 G/DL (11.9-15.5); MCHC 31.7 G/DL (30.0-36.0); MCV 88.2 FL (83-99); PLATELET COUNT 250 K/uL (156-360); RBC DIS.WIDTH-CV 15.5 % (11.8-14.6); RBC DIS.WIDTH-SD 48.9 % (39-53); RED BLOOD COUNT 5.08 M/uL (3.80-5.20); WHITE BLOOD COUNT 7.1 K/uL (4.1-10.2)
[2017-09-06 13:02] LABS: CHLORIDE 103 mEq/L (99-109); POTASSIUM 3.8 mEq/L (3.7-5.4); SODIUM 139 mEq/L (136-147)
[2017-09-06 13:04] LABS: GLUCOSE 85 mg/dL (70-99)
[2017-09-06 13:07] LABS: CREATININE 0.7 mg/dL (0.6-1.3); GFR ESTIMATE (CALCULATED) > 59 mL/min/
[2017-09-06 13:08] LABS: UREA NITROGEN (BUN) 11 mg/dL (9-23)
[2017-09-06 13:12] LABS: TROP-I INTERPRETATION NEGATIVE; TROPONIN-I < 0.01 ng/mL (0.0-0.30)
[2017-09-06 15:03] LABS: APPEARANCE CLEAR ((CLEAR)); BILIRUBIN NEGATIVE; BLOOD NEGATIVE; COLOR YELLOW ((YELLOW)); GLUCOSE (STRIP) NEGATIVE; KETONES 20; LEUKOCYTES NEGATIVE; NITRITE NEGATIVE; PROTEIN (STRIP) NEGATIVE; SPECIFIC GRAVITY 1.019 (1.000-1.030); UCUL ADDED? NO
[2017-09-06] MEDS ORDERED: PRAVACHOL20 MG PO (17:36)
[2017-09-06] MEDS ORDERED: ANTIVERT25 MG PO (17:38)
[2017-09-06] MEDS ORDERED: ZOFRAN4 MG PO (17:39)
[2017-09-06] MEDS ORDERED: COLACE100 MG PO (17:41)
[2017-09-06] MEDS ORDERED: BUSPAR5 MG PO (17:42)
[2017-09-06] MEDS ORDERED: PRILOSEC20 MG PO (17:43)
[2017-09-06] MEDS ORDERED: LAMICTAL25 MG PO (17:45)
[2017-09-06 19:20] LABS: HEMATOCRIT 41.3 % (36.0-46.0); HEMOGLOBIN 13.1 G/DL (11.9-15.5); MCH 28.2 PG (29.0-34.0); MCHC 31.7 G/DL (30.0-36.0); MCV 88.8 FL (83-99); PLATELET COUNT 241 K/uL (156-360); RBC DIS.WIDTH-CV 15.5 % (11.8-14.6); RBC DIS.WIDTH-SD 49.7 % (39-53); RED BLOOD COUNT 4.65 M/uL (3.80-5.20); WHITE BLOOD COUNT 5.2 K/uL (4.1-10.2)
[2017-09-06 19:27] VITALS: BP 125/58
[2017-09-06 19:34] LABS: TOTAL CHOLESTEROL 144 mg/dL (Desirable<200); TRIGLYCERIDES 52 MG/DL (Normal: <150)
[2017-09-06 19:35] LABS: HDL CHOLESTEROL 61 MG/DL (Desirable>=50); LDL CHOLESTEROL 73 mg/dL (Desirable<100); NON-HDL CHOLESTEROL 83 mg/dL (Desirable<160)
[2017-09-07] VITALS (8 sets, daily range): BP systolic 105–193; BP diastolic 50–73
[2017-09-07 20:10] LABS: THYROTROPIN (TSH) 0.24 MIU/L (0.4-5.5)
[2017-09-08] VITALS (7 sets, daily range): BP systolic 87–115; BP diastolic 48–59
[2017-09-08 05:47] LABS: BASOPHIL (%) 0.4 % (0-1); EOSINOPHIL (%) 2.2 % (0-5); EOSINOPHIL COUNT 0.1 K/uL (0-0.3); HEMATOCRIT 37.8 % (36.0-46.0); HEMOGLOBIN 11.6 G/DL (11.9-15.5); IMMATURE GRANULOCYTE (%) 0.4 % (0.0-0.7); LYMPHOCYTE (%) 10.9 % (15-42); LYMPHOCYTE COUNT 0.6 K/uL (1.0-2.8); MCH 27.4 PG (29.0-34.0); MCHC 30.7 G/DL (30.0-36.0); MCV 89.2 FL (83-99); MONOCYTE (%) 4.7 % (3-12); MONOCYTE COUNT 0.3 K/uL (0-0.8); NEUTROPHIL (%) 81.4 % (45-76); NEUTROPHIL COUNT 4.5 K/uL (1.8-6.4); PLATELET COUNT 210 K/uL (156-360); RBC DIS.WIDTH-CV 15.3 % (11.8-14.6); RBC DIS.WIDTH-SD 48.9 % (39-53); RED BLOOD COUNT 4.24 M/uL (3.80-5.20); WHITE BLOOD COUNT 5.5 K/uL (4.1-10.2)
[2017-09-08 06:00] LABS: CHLORIDE 110 MEQ/L (99-109); CREATININE 0.5 MG/DL (0.6-1.3); GFR ESTIMATE (CALCULATED) > 59 mL/min/; POTASSIUM 3.6 MEQ/L (3.7-5.4); SODIUM 141 MEQ/L (136-147); UREA NITROGEN (BUN) 15 mg/dL (9-23)
[2017-09-08 06:01] LABS: GLUCOSE 132 mg/dL (70-99)
[2017-09-09 04:09] VITALS: BP 98/50
[2017-09-09 07:40] VITALS: BP 111/56
[2017-09-09 12:13] VITALS: BP 143/65
[2017-09-09 16:00] VITALS: BP 110/54
== END 2017-09-09 17:50 | disposition home health service (06) | DRG 312 ==
LOC: EME 11:58 → EDOF 18:03 → 4SOUTH 18:03 → ENRESERV 18:05 → 4SOUTH 19:10 → ENPENDDIS 09-09 → 4SOUTH 09-09 17:50
PROVIDERS: Emergency Medicine Emergency Medical Services; Hospitalist
DX: I95.1 Orthostatic hypotension (principal); R42 Dizziness and giddiness; R29.6 Repeated falls; G40.909 Epilepsy, unspecified, not intractable, without status epilepticus; I10 Essential (primary) hypertension; E04.1 Nontoxic single thyroid nodule; I25.10 Atherosclerotic heart disease of native coronary artery without angina pectoris; K31.84 Gastroparesis; D64.9 Anemia, unspecified; E78.5 Hyperlipidemia, unspecified; K21.9 Gastro-esophageal reflux disease without esophagitis; F41.9 Anxiety disorder, unspecified; F32.9 Major depressive disorder, single episode, unspecified; Z86.73 Personal history of transient ischemic attack (TIA), and cerebral infarction without residual deficits; Z79.82 Long term (current) use of aspirin; Z96.651 Presence of right artificial knee joint; Z82.49 Family history of ischemic heart disease and other diseases of the circulatory system
CPT/HCPCS: 70360; 70551; 76536; 80048; 80061; 81003; 83036; 84439; 84443; 84484; 85025; 85027; 93005; 93306; 93880; 97530 GP; 99281; 99285; G0378; G8987 GO CM; G8988 GO CK; J0780; J1650; J2060; J2405; J7030; J7040; J7050; S0028

== ENCOUNTER 2017-09-20 17:17 | Emergency (ER) | payer OTHER, MEDICARE ==
[~2017-09-20] VITALS: Ht 162.6 cm; Wt 45.0 kg
[~2017-09-20 17:17] MED LIST changes: +LAMICTAL25 MG PO; +PRILOSEC20 MG PO
[2017-09-20 19:22] LABS: HEMATOCRIT 42.1 % (36.0-46.0); HEMOGLOBIN 13.3 G/DL (11.9-15.5); MCH 27.7 PG (29.0-34.0); MCHC 31.6 G/DL (30.0-36.0); MCV 87.7 FL (83-99); RBC DIS.WIDTH-CV 15.3 % (11.8-14.6); RBC DIS.WIDTH-SD 49.1 % (39-53); WHITE BLOOD COUNT 8.5 K/uL (4.1-10.2)
[2017-09-20 19:31] LABS: CHLORIDE 105 mEq/L (99-109); POTASSIUM 4.1 mEq/L (3.7-5.4); SODIUM 140 mEq/L (136-147)
[2017-09-20 19:33] LABS: GLUCOSE 89 mg/dL (70-99)
[2017-09-20 19:37] LABS: CREATININE 0.6 mg/dL (0.6-1.3); GFR ESTIMATE (CALCULATED) > 59 mL/min/; UREA NITROGEN (BUN) 10 mg/dL (9-23)
[2017-09-20 19:38] LABS: PLATELET COUNT 279 K/uL (156-360)
[2017-09-20 20:03] LABS: APPEARANCE CLOUDY ((CLEAR)); BILIRUBIN NEGATIVE; BLOOD MODERATE; COLOR YELLOW ((YELLOW)); GLUCOSE (STRIP) NEGATIVE; KETONES 5; LEUKOCYTES SMALL; NITRITE NEGATIVE; PROTEIN (STRIP) 30; SPECIFIC GRAVITY 1.024 (1.000-1.030)
[2017-09-20 20:12] LABS: BACTERIA RARE /HPF; EPITHELIAL CELLS RARE /HPF; HYALINE CASTS 0-5 /LPF; MUCUS 1+ /LPF; RED BLOOD CELLS 0-5 /HPF (0-5); UCUL ADDED? YES
[2017-09-20] MEDS ORDERED: MECLIZINE HCL25 MG PO (20:36)
[2017-09-20] MEDS ORDERED: KEFLEX500 MG PO (20:36)
[2017-09-20 21:35] VITALS: BP 122/64
== END 2017-09-20 21:36 | disposition home or self-care (01) ==
LOC: EME 17:17
PROVIDERS: Nurse Practitioner Family
DX: R11.2 Nausea with vomiting, unspecified (principal); R42 Dizziness and giddiness; N39.0 Urinary tract infection, site not specified; B96.1 Klebsiella pneumoniae [K. pneumoniae] as the cause of diseases classified elsewhere; I25.10 Atherosclerotic heart disease of native coronary artery without angina pectoris; K21.9 Gastro-esophageal reflux disease without esophagitis; G43.909 Migraine, unspecified, not intractable, without status migrainosus; R56.9 Unspecified convulsions; F41.9 Anxiety disorder, unspecified; F32.9 Major depressive disorder, single episode, unspecified; Z79.82 Long term (current) use of aspirin; Z86.73 Personal history of transient ischemic attack (TIA), and cerebral infarction without residual deficits; Z87.19 Personal history of other diseases of the digestive system; Z90.49 Acquired absence of other specified parts of digestive tract; Z88.5 Allergy status to narcotic agent; Z88.8 Allergy status to other drugs, medicaments and biological substances
CPT/HCPCS: 80048; 81003; 85027; 87077; 87086; 87186; 99281; 99284; J0780; J2405; J7120

== ENCOUNTER 2017-10-03 17:48 | Emergency (ER) | payer OTHER, MEDICARE ==
[~2017-10-03] VITALS: Ht 162.6 cm; Wt 51.2 kg
[2017-10-03 20:10] LABS: HEMATOCRIT 43.6 % (36.0-46.0); HEMOGLOBIN 13.8 G/DL (11.9-15.5); MCH 27.3 PG (29.0-34.0); MCHC 31.7 G/DL (30.0-36.0); MCV 86.2 FL (83-99); PLATELET COUNT 210 K/uL (156-360); RBC DIS.WIDTH-CV 15.1 % (11.8-14.6); RBC DIS.WIDTH-SD 47.9 % (39-53); RED BLOOD COUNT 5.06 M/uL (3.80-5.20); WHITE BLOOD COUNT 6.5 K/uL (4.1-10.2)
[2017-10-03 20:18] LABS: ALBUMIN 3.9 g/dL (3.2-4.8); CHLORIDE 104 mEq/L (99-109); SODIUM 142 mEq/L (136-147)
[2017-10-03 20:20] LABS: GLUCOSE 102 mg/dL (70-99); TOTAL PROTEIN 6.5 g/dL (6.4-8.3)
[2017-10-03 20:22] LABS: TOTAL BILIRUBIN 0.5 mg/dL (0.0-1.0)
[2017-10-03 20:24] LABS: ALKALINE PHOSPHATASE 60 IU/L (3-129); CREATININE 0.6 mg/dL (0.6-1.3); GFR ESTIMATE (CALCULATED) > 59 mL/min/
[2017-10-03 20:25] LABS: AST (GOT) 11 IU/L (2-34); UREA NITROGEN (BUN) 9 mg/dL (9-23)
[2017-10-03 20:27] LABS: ALT (GPT) 10 IU/L (3-49); LIPASE 18 U/L (1.0-51.0)
[2017-10-03 22:13] LABS: APPEARANCE SL.HAZY ((CLEAR)); BILIRUBIN NEGATIVE; BLOOD NEGATIVE; COLOR YELLOW ((YELLOW)); GLUCOSE (STRIP) NEGATIVE; KETONES 20; LEUKOCYTES SMALL; NITRITE NEGATIVE; PROTEIN (STRIP) 30; SPECIFIC GRAVITY 1.025 (1.000-1.030); UROBILINOGEN 0.2 MG/DL (0.2-1.0)
[2017-10-03 22:36] LABS: EPITHELIAL CELLS 3+ /HPF; MUCUS 3+ /LPF
[2017-10-03 22:37] LABS: BACTERIA 2+ /HPF
[2017-10-03 22:38] LABS: RED BLOOD CELLS NONE SEEN /HPF (0-5); UCUL ADDED? YES; WHITE BLOOD CELLS 0-5 /HPF (0-5)
[2017-10-03 22:39] LABS: HYALINE CASTS 0-5 /LPF
[2017-10-03 23:45] VITALS: BP 109/56
== END 2017-10-03 23:47 | disposition home or self-care (01) ==
LOC: EME 17:48
PROVIDERS: Emergency Medicine
DX: K31.84 Gastroparesis (principal); K21.9 Gastro-esophageal reflux disease without esophagitis; I25.10 Atherosclerotic heart disease of native coronary artery without angina pectoris; F41.9 Anxiety disorder, unspecified; F32.9 Major depressive disorder, single episode, unspecified; Z86.73 Personal history of transient ischemic attack (TIA), and cerebral infarction without residual deficits; Z90.49 Acquired absence of other specified parts of digestive tract; Z79.82 Long term (current) use of aspirin; Z88.5 Allergy status to narcotic agent; Z88.8 Allergy status to other drugs, medicaments and biological substances
CPT/HCPCS: 74176; 80053; 81003; 83690; 85027; 87086; 99281; 99285; J2405

== ENCOUNTER 2017-10-15 17:40 | Emergency (ER) | payer OTHER, MEDICARE ==
[~2017-10-15] VITALS: Ht 162.6 cm; Wt 59.0 kg
[2017-10-15 18:55] LABS: BASOPHIL (%) 0.4 % (0-1); EOSINOPHIL (%) 0.6 % (0-5); HEMATOCRIT 43.2 % (36.0-46.0); HEMOGLOBIN 13.9 G/DL (11.9-15.5); IMMATURE GRANULOCYTE (%) 0.2 % (0.0-0.7); LYMPHOCYTE (%) 17.9 % (15-42); LYMPHOCYTE COUNT 0.9 K/uL (1.0-2.8); MCH 27.3 PG (29.0-34.0); MCHC 32.2 G/DL (30.0-36.0); MCV 84.9 FL (83-99); MONOCYTE (%) 9.9 % (3-12); MONOCYTE COUNT 0.5 K/uL (0-0.8); NEUTROPHIL COUNT 3.4 K/uL (1.8-6.4); PLATELET COUNT 243 K/uL (156-360); RBC DIS.WIDTH-CV 15.9 % (11.8-14.6); RBC DIS.WIDTH-SD 48.5 % (39-53); RED BLOOD COUNT 5.09 M/uL (3.80-5.20); WHITE BLOOD COUNT 4.7 K/uL (4.1-10.2)
[2017-10-15 19:13] LABS: ALBUMIN 3.7 g/dL (3.2-4.8); CHLORIDE 104 mEq/L (99-109); SODIUM 140 mEq/L (136-147)
[2017-10-15 19:14] LABS: MAGNESIUM 2.2 mg/dL (1.3-2.7)
[2017-10-15 19:16] LABS: GLUCOSE 82 mg/dL (70-99); TOTAL PROTEIN 6.3 g/dL (6.4-8.3)
[2017-10-15 19:18] LABS: TOTAL BILIRUBIN 0.7 mg/dL (0.0-1.0)
[2017-10-15 19:19] LABS: ALKALINE PHOSPHATASE 62 IU/L (3-129); TROP-I INTERPRETATION NEGATIVE; TROPONIN-I < 0.01 ng/mL (0.0-0.30)
[2017-10-15 19:20] LABS: CREATININE 0.6 mg/dL (0.6-1.3); GFR ESTIMATE (CALCULATED) > 59 mL/min/
[2017-10-15 19:21] LABS: AST (GOT) 10 IU/L (2-34); UREA NITROGEN (BUN) 11 mg/dL (9-23)
[2017-10-15 19:22] LABS: ALT (GPT) 8 IU/L (3-49)
[2017-10-15 19:23] LABS: LIPASE 21 U/L (1.0-51.0)
[2017-10-15 22:16] LABS: APPEARANCE CLEAR ((CLEAR)); BILIRUBIN NEGATIVE; BLOOD SMALL; COLOR YELLOW ((YELLOW)); GLUCOSE (STRIP) NEGATIVE; KETONES 80; LEUKOCYTES TRACE; NITRITE NEGATIVE; PROTEIN (STRIP) 30; SPECIFIC GRAVITY 1.019 (1.000-1.030)
[2017-10-15 22:42] LABS: BACTERIA RARE /HPF; EPITHELIAL CELLS 1+ /HPF; MUCUS TRACE /LPF; RED BLOOD CELLS 0-5 /HPF (0-5); UCUL ADDED? NO; WHITE BLOOD CELLS 0-5 /HPF (0-5)
[2017-10-15] MEDS ORDERED: PRAVACHOL20 MG PO (23:01)
[2017-10-15] MEDS ORDERED: ZOFRAN ODT4 MG PO (23:13)
[2017-10-16 00:09] VITALS: BP 121/59
== END 2017-10-16 00:10 | disposition home or self-care (01) ==
LOC: EME 17:40
PROVIDERS: Emergency Medicine
DX: R42 Dizziness and giddiness (principal); E86.0 Dehydration; R11.2 Nausea with vomiting, unspecified; H53.8 Other visual disturbances; R07.9 Chest pain, unspecified; I51.7 Cardiomegaly; I70.0 Atherosclerosis of aorta; Z86.73 Personal history of transient ischemic attack (TIA), and cerebral infarction without residual deficits; Z90.49 Acquired absence of other specified parts of digestive tract; Z79.82 Long term (current) use of aspirin
CPT/HCPCS: 70450; 71045; 80053; 81003; 83690; 83735; 84484; 85025; 93005; 99281; 99285; J2405; J7040

== ENCOUNTER 2017-10-27 13:11 | Emergency (ER) | payer OTHER, MEDICARE ==
[~2017-10-27] VITALS: Ht 162.6 cm; Wt 49.1 kg
[2017-10-27 16:44] LABS: HEMATOCRIT 41.8 % (36.0-46.0); HEMOGLOBIN 13.1 G/DL (11.9-15.5); MCH 27.1 PG (29.0-34.0); MCHC 31.3 G/DL (30.0-36.0); MCV 86.4 FL (83-99); PLATELET COUNT 225 K/uL (156-360); RBC DIS.WIDTH-SD 53.5 % (39-53); RED BLOOD COUNT 4.84 M/uL (3.80-5.20)
[2017-10-27 16:55] LABS: CHLORIDE 106 mEq/L (99-109); SODIUM 141 mEq/L (136-147)
[2017-10-27 16:56] LABS: GLUCOSE 96 mg/dL (70-99); POTASSIUM 4.8 mEq/L (3.7-5.4)
[2017-10-27 17:00] LABS: CREATININE 0.6 mg/dL (0.6-1.3); GFR ESTIMATE (CALCULATED) > 59 mL/min/
[2017-10-27 17:01] LABS: UREA NITROGEN (BUN) 7 mg/dL (9-23)
[2017-10-27 17:43] LABS: APPEARANCE CLEAR ((CLEAR)); BILIRUBIN NEGATIVE; BLOOD NEGATIVE; COLOR YELLOW ((YELLOW)); GLUCOSE (STRIP) NEGATIVE; KETONES NEGATIVE; LEUKOCYTES NEGATIVE; NITRITE NEGATIVE; PROTEIN (STRIP) NEGATIVE; UCUL ADDED? NO
[2017-10-27 18:48] VITALS: BP 124/69
== END 2017-10-27 18:51 | disposition home or self-care (01) ==
LOC: EME 13:11
PROVIDERS: Emergency Medicine
DX: R25.1 Tremor, unspecified (principal); G40.909 Epilepsy, unspecified, not intractable, without status epilepticus; F32.9 Major depressive disorder, single episode, unspecified; K21.9 Gastro-esophageal reflux disease without esophagitis; Z86.73 Personal history of transient ischemic attack (TIA), and cerebral infarction without residual deficits; I25.10 Atherosclerotic heart disease of native coronary artery without angina pectoris; F41.9 Anxiety disorder, unspecified; Z79.82 Long term (current) use of aspirin; Z88.5 Allergy status to narcotic agent
CPT/HCPCS: 80048; 81003; 85027; 99281; 99285